=== PATIENT | female | born 1975 | race African-American/Black ===

== ENCOUNTER → 2017-03-05 | Outpatient (CLI) | payer BC ==
[~2017-03-05] MED LIST: CELEXA10 MG PO; ESTRACE2 MG PO; FLAGYL500 MG PO; IBU800 M1 PO; LEVAQUIN 5500 MG/TA1 PO; NORCO 325 MG-7.1 TAB PO; PROTONIX 40MG T40 MG PO; ULTRAM 50MG TAB50 MG PO; hormone
== END ==
LOC: MHCPAIN 13:53
DX: G89.29 Other chronic pain (principal); M47.817 Spondylosis without myelopathy or radiculopathy, lumbosacral region; M79.2 Neuralgia and neuritis, unspecified; R10.30 Lower abdominal pain, unspecified
CPT/HCPCS: G0463